=== PATIENT | male | born 1930 | race Caucasian/White ===

== ENCOUNTER → 2017-03-04 | Outpatient (CLI) | payer MEDICARE ==
[~2017-03-04] MED LIST: NORVASC5 MG PO; PROSCAR5 MG PO; TOPROL XL25 MG PO
== END | disposition disaster alternative care site (69) ==
LOC: GRAD 15:21
DX: N21.0 Calculus in bladder (principal); N20.0 Calculus of kidney; N28.89 Other specified disorders of kidney and ureter

== ENCOUNTER → 2017-05-06 | Day surgery (SDC) | payer MEDICARE ==
[~2017-05-06] VITALS: Ht 175.3 cm; Wt 77.8 kg
--- NOTE | ~2017-05-06 | OR ---
PATIENT'S NAME: DIANA MENDOZA [facility] AGE: 86 Y [address] ROOM: [place] [address] [place] [facility] [place]: 05/06/[place] OR/Procedure Report DISCHARGE DATE: FAMILY PHYSICIAN: MANFRED SALAZAR MD ATTENDING PHYSICIAN: Luis Ramirez SURGEON: Luis Ramirez MD [employer] MANAGER: DATE OF PROCEDURE: 05/06/2017 PREOPERATIVE DIAGNOSIS: Bladder stone. POSTOPERATIVE DIAGNOSES: 1. Benign Prostatic Hyperplasia. 2. Bladder stone. PROCEDURES: Cystoscopy and evacuation of bladder stone. DESCRIPTION OF PROCEDURE: After adequate anesthesia, he was placed in dorsal lithotomy position. Prepped and draped. Cystoscope was passed. The prostatic fossa was normal in length. There was some lateral lobe and early median lobe enlargement. Examination of the bladder revealed a normal trigone. There were no tumors in the bladder. There was one stone and this was removed with the stone forceps. He was then accompanied to recovery area. LUIS RAMIREZ MD EKL/modl /[id number] d: 05/06/17914 t: 05/07/17 0441, OPERATIVE SUMMARY
--- NOTE | ~2017-05-06 | HP ---
PATIENT'S NAME: DIANA MENDOZA [facility] AGE: 86 Y [address] ROOM: [place] [address] [place] [facility] [place]: 05/06/2017 History & Physical DISCHARGE DATE: FAMILY PHYSICIAN: PHYSICIAN, UNKNOWN ATTENDING PHYSICIAN: Luis Ramirez DATE OF SERVICE: HISTORY OF PRESENT ILLNESS: An 86-year-old male who was seen for evacuation of bladder stones. He was seen in the office. A KUB x-ray was done showing some small bladder stones. In the past, he has had stones removed from the right distal ureter and stones removed from the bladder. No other history of urinary tract disease or infections. PAST MEDICAL HISTORY: Illnesses: Hypertension. OPERATIONS: As above. ALLERGIES: NONE KNOWN. PHYSICAL EXAMINATION: GENERAL: A well-developed, well-nourished male. CHEST: Clear to auscultation. HEART: Normal sinus rhythm. ABDOMEN: Soft with no palpable masses. : Normal penis. Testicles are of normal size and normal to palpation. Prostate is enlarged, smooth, and benign. RECTAL: Negative. IMPRESSION: Bladder stones. PLAN: As above. LUIS RAMIREZ MD PATIENT'S NAME: DIANA MENDOZA [facility] AGE: 86 Y [address] ROOM: [place] [address] [place] [facility] [place]: 05/06/2017 History & Physical DISCHARGE DATE: FAMILY PHYSICIAN: PHYSICIAN, UNKNOWN ATTENDING PHYSICIAN: Luis Ramirez EKL/modl /[id number] D: T: HISTORY & PHYSICAL
[2017-05-06 05:47] LABS: BASOPHIL # 0.1 K/uL (0.0-0.2); BASOPHIL % 1.6 %; EOSINOPHIL # 0.4 K/uL (0.0-0.5); EOSINOPHIL % 6.4 %; HEMOGLOBIN 14.8 g/dL (11.0-16.0); IMMATURE GRANULOCYTE % 0.3 %; LYMPHOCYTE # 3.1 K/uL (0.8-4.0); LYMPHOCYTE % 46.6 %; MCH 29.7 pg (27.0-34.0); MCHC 32.9 gm/dL (32.0-36.5); MCV 90.4 fl (83.0-98.0); MONOCYTE # 0.9 K/uL (0.0-1.0); MONOCYTE % 13.8 %; MPV 8.8 fl (9.4-12.4); NEUTROPHIL # (ANC) 2.1 K/uL (1.4-9.0); NEUTROPHIL % 31.3 %; NRBC % 0 /100WBC (0-0.00); PLATELET COUNT 284 K/uL (150-450); RBC 4.98 M/uL (3.50-5.50); RDW-CV 12.6 % (11.9-14.6); WBC 6.7 K/uL (4.0-11.0)
[2017-05-06 06:07] LABS: ALBUMIN 3.9 gm/dL (3.5-5.0); ANION GAP 11.3 (10.0-19.0); CALCIUM 8.6 mg/dL (8.5-10.5); CREATININE 1.3 mg/dL (0.6-1.3); POTASSIUM 4.3 mMol/L (3.7-5.1); TOTAL BILIRUBIN 0.4 mg/dL (0.0-1.5); TOTAL PROTEIN 6.9 g/dL (6.0-8.4)
== END | disposition disaster alternative care site (69) ==
LOC: GPOC 05-05 17:00 → GSDC 05:30
PROVIDERS: Urology
PROC: 0TPB8JZ Removal of Synthetic Substitute from Bladder, Via Natural or Artificial Opening Endoscopic (ICD-10-PCS; principal; 2017-05-06)
DX: N21.0 Calculus in bladder (principal); N40.0 Benign prostatic hyperplasia without lower urinary tract symptoms; I10 Essential (primary) hypertension
CPT/HCPCS: J0713; J2001; J7030; J7040